=== PATIENT | female | born 1990 | race Caucasian/White ===

== ENCOUNTER 2018-11-07 19:16 | Emergency (ER) | payer BC ==
[~2018-11-07] VITALS: Ht 152.4 cm; Wt 73.9 kg
--- NOTE | 2018-11-07 19:42 | NUR ---
BIBIENIain C/O "HYPERTENSIVE CRISIS" X 30 MIN. PATIENT ACTIVELY VOMITING IN TRIAGE. SKIN IS COOL AND CLAMMY. C/O HEADACHE, DIZZINESS. MANAGING CONDITION WITH DEEP BREATHING EXERCISES. NO ACUTE DISTRESS NOTED. ON MONITOR AND READY FOR EVAL.
[2018-11-07] MEDS ORDERED: IV NS 0.9% 1,000 ML BAG IV ONE (20:30)
[2018-11-07 20:36] LABS: BASOPHILS # (AUTO) 0.2 /CMM (0.0-0.2); BASOPHILS % (AUTO) 1.5 % (0.0-2.0); EOSINOPHILS % (AUTO) 6.3 % (0.0-6.0); HEMATOCRIT 46 % (33-45); HEMOGLOBIN 15.9 g/dL (11.5-14.8); LYMPHOCYTES # (AUTO) 3.1 /CMM (0.8-4.8); LYMPHOCYTES % (AUTO) 29.9 % (20.0-44.0); MEAN CORPUSCULAR HGB CONC 35 g/dl (31.0-36.0); MEAN CORPUSCULAR VOLUME 92 fL (82-100); MONOCYTES % (AUTO) 9.9 % (2.0-12.0); NEUTROPHILS # (AUTO) 5.4 /CMM (1.8-8.9); NEUTROPHILS % (AUTO) 52.4 % (43.0-81.0); PLATELET COUNT (AUTO) 339 /CMM (150-450); RED BLOOD CELL COUNT(AUTO) 5.02 MIL/uL (4.0-5.2); WHITE BLOOD COUNT (AUTO) 10.2 K/uL (4.3-11.0)
[2018-11-07 20:40] LABS: CALCIUM, SERUM 10.2 mg/dL (8.5-10.1); CREATININE 1.2 mg/dL (0.6-1.3); POTASSIUM 3.8 mmol/L (3.5-5.1)
--- NOTE | 2018-11-07 21:38 | NUR ---
PT STATES FEELING MUCH BETTER. STILL HAS LINGERING HEADACHE, BUT TOLERABLE. WILL CONT TO MONITOR.
--- NOTE | 2018-11-07 22:34 | NUR ---
Patient discharged to home in stable condition. Written and verbal after care instructions given. Patient verbalizes understanding of instruction.IV removed. Catheter intact and site benign. Pressure and 4x4 applied to site. No bleeding noted.
[2018-11-07 22:35] VITALS: BP 159/94
== END 2018-11-07 22:36 | disposition home or self-care (01) ==
LOC: ER 19:19
DX: R51 Headache (principal); R11.2 Nausea with vomiting, unspecified; T43.1X5A Adverse effect of monoamine-oxidase-inhibitor antidepressants, initial encounter; I10 Essential (primary) hypertension; F41.9 Anxiety disorder, unspecified; R00.0 Tachycardia, unspecified; F31.9 Bipolar disorder, unspecified; Z60.2 Problems related to living alone; Y92.89 Other specified places as the place of occurrence of the external cause
CPT/HCPCS: 36415; 71045; 80048; 84484; 85025; 93005 ×2; 96360; 99284; J7030